=== PATIENT | female | born 1970 | race Caucasian/White ===

== ENCOUNTER → 2017-01-03 | Outpatient (CLI) | payer MEDICAID ==
--- NOTE | 2017-01-04 07:52 | MM ---
Reason for exam: follow-up at short interval from prior study. Last mammogram was performed 7 months ago. History: Patient history of other cancer. Took hormonal contraceptives for 12 years beginning at age 17. Physical Findings: Nurse did not find any significant physical abnormalities on exam. MG 3D Diag Mammo W/Cad LT CC and MLO view(s) were taken of the left breast. Prior study comparison: May 25, 2016, left breast MG work up mamm w CAD LT. May 09, 2016, bilateral MG screening mammo w CAD. The breast tissue is heterogeneously dense. This may lower the sensitivity of mammography. No significant new findings when compared with previous films. These results were verbally communicated with the patient and result sheet given to the patient on 01/03/17. ASSESSMENT: Benign, BI-RAD 2 RECOMMENDATION: Return to routine screening mammogram schedule for both breasts.
== END | disposition home or self-care (01) ==
LOC: RADMAMWWP 15:29
PROVIDERS: ATTEND Obstetrics & Gynecology
DX: R92.8 Other abnormal and inconclusive findings on diagnostic imaging of breast (principal)
CPT/HCPCS: G0206; G0279

== ENCOUNTER → 2017-02-28 | Outpatient (CLI) | payer MEDICAID ==
[2017-02-28 16:54] LABS: HSV I IgG Interp NEGATIVE (NEGATIVE); HSV II IgG Interp NEGATIVE (NEGATIVE)
[2017-02-28 23:06] LABS: Treponemal Ab Non-Reactive (Non-Reactive)
== END | disposition home or self-care (01) ==
LOC: LABWHC1 09:27
PROVIDERS: ATTEND Obstetrics & Gynecology
DX: Z11.3 Encounter for screening for infections with a predominantly sexual mode of transmission (principal)
CPT/HCPCS: 36415; 86694; 86695; 86696; 86780; 87390

== ENCOUNTER → 2017-10-03 | Outpatient (CLI) | payer MEDICAID | END | disposition home or self-care (01) | LOC: LABMAIN 09:46 | PROVIDERS: ATTEND Physician Assistant | DX: R05 Cough (principal); R09.81 Nasal congestion | CPT/HCPCS: 87502 ==

== ENCOUNTER → 2018-01-10 | Outpatient (CLI) | payer MEDICAID ==
--- NOTE | 2018-01-13 09:58 | MM ---
Reason for exam: screening (asymptomatic). Last mammogram was performed 1 year ago. History: Patient history of other cancer. Took hormonal contraceptives for 12 years beginning at age 17. Physical Findings: A clinical breast exam by your physician is recommended on an annual basis and results should be correlated with mammographic findings. MG 3D Screening Mammo W/Cad Bilateral CC and MLO view(s) were taken. Prior study comparison: January 03, 2017, left breast MG 3d diag mammo w/cad LT. May 25, 2016, left breast MG work up mamm w CAD LT. The breast tissue is heterogeneously dense. This may lower the sensitivity of mammography. Finding: There is a typically benign 2.6 mm high density, oval mass in the 11 o'clock position of the left breast consistent with enlarging cyst. No significant changes in finding since January 03, 2017 and May 25, 2016. ASSESSMENT: Benign, BI-RAD 2 RECOMMENDATION: Routine screening mammogram of both breasts in 1 year.
== END | disposition home or self-care (01) ==
LOC: RADMAMWWP 15:42
PROVIDERS: ATTEND Obstetrics & Gynecology
DX: Z12.31 Encounter for screening mammogram for malignant neoplasm of breast (principal)
CPT/HCPCS: 77063

== ENCOUNTER → 2018-01-15 | Outpatient (CLI) | payer MEDICAID ==
[2018-01-15 08:15] LABS: Cholesterol 250 mg/dL (<200); HDL Cholesterol 102 mg/dL (40-60); LDL Cholesterol,Calculated 137 mg/dL (0-99); Triglycerides 53 mg/dL (<150)
== END | disposition home or self-care (01) ==
LOC: LABWHC1 07:30
PROVIDERS: ATTEND Obstetrics & Gynecology
DX: Z13.220 Encounter for screening for lipoid disorders (principal)
CPT/HCPCS: 36415; 80061

== ENCOUNTER → 2018-05-07 | Outpatient (CLI) | payer MEDICAID ==
--- NOTE | 2018-05-07 21:52 | MR ---
EXAMINATION TYPE: MR brain wo/w con DATE OF EXAM: 05/07/2018 COMPARISON: CT brain 01/31/2011 HISTORY: Headaches, Neck Pain, Confusion, Gadavist 7.5 TECHNIQUE: Multiplanar, multisequence images of the brain and brainstem is performed without and with IV contras t, utilizing 7.5 mL intravenous Gadavist . FINDINGS: Diffusion weighted images demonstrate no evidence of a recent infarct or other diffusion ab normality. There is no extra-axial fluid collection or significant white matter signal abnormality. The ventricular system and cisternal spaces are normal in size and appearance. The brain volume is age appropriate. Midline structures demonstrate normal morphology. The craniocervical junction appears within normal limits. Prominent posterior finding is similar to the CT scan of the head CSF fluid collection may represent a prominent cisterna magna or an arachnoid cyst. Findings stable compared to the CT scan 2010. Incidental note is made of a tiny venous angioma within the left parietal lobe. Changes of chronic si nusitis noted. White matter: There are approximately 3 areas of abnormal signal the white matter. All are seen withi n the left parietal lobe largest measuring 8 mm. There a small area of abnormal signal in the anterio r genuine corpus callosum. There are no lesions perpendicular to ventricular system. No enhancing lesions. IMPRESSION: 1. There is a prominent posterior fossa CSF collection which may represent a prominent cisterna magna . Arachnoid cyst within the differential diagnosis and not excluded. 2. Minimal nonspecific white matter changes can be on the basis of an area of remote ischemia. Appear s in the location of the suspected incidental venous angioma. Demyelinating disease not entirely excl uded given there is an area of abnormal signal within the anterior corpus callosum. Correlate clinica lly.
== END | disposition home or self-care (01) ==
LOC: RADMRIMAIN 20:36
PROVIDERS: ATTEND Psychiatry & Neurology Neurology
DX: R90.89 Other abnormal findings on diagnostic imaging of central nervous system (principal); R93.0 Abnormal findings on diagnostic imaging of skull and head, not elsewhere classified; H53.9 Unspecified visual disturbance; R26.89 Other abnormalities of gait and mobility; Z86.69 Personal history of other diseases of the nervous system and sense organs
CPT/HCPCS: 70553; A9581

== ENCOUNTER → 2018-05-26 | Outpatient (CLI) | payer MEDICAID ==
--- NOTE | 2018-05-26 17:11 | US ---
EXAMINATION TYPE: US carotid duplex BILAT DATE OF EXAM: 05/26/2018 COMPARISON: Brain MR 05/07/2018 CLINICAL HISTORY: R90.82 M54.2. Abnormal MRI. High cholesterol- no meds. No HTN. No hx of tia or s trokes. EXAM MEASUREMENTS: RIGHT: Peak Systolic Velocity (PSV) cm/sec ----- Right CCA: 76.5 ----- Right ICA: 73.8 ----- Right ECA: 88.6 ICA/CCA ratio: 1.0 RIGHT: End Diastole cm/sec ----- Right CCA: 30.3 ----- Right ICA: 33.7 ----- Right ECA: 24.8 LEFT: Peak Systolic Velocity (PSV) cm/sec ----- Left CCA: 81.7 ----- Left ICA: 72.1 ----- Left ECA: 96.3 ICA/CCA ratio: 0.9 LEFT: End Diastole cm/sec ----- Left CCA: 30.2 ----- Left ICA: 31.1 ----- Left ECA: 23.7 VERTEBRALS (direction of flow): Right Vertebral: Antegrade Left Vertebral: Antegrade Rhythm: Normal No wall thickening, plaque, elevated velocities or significant stenosis seen. Grayscale, color Doppler, spectral Doppler imaging performed of the carotid arteries. Waveform analys is does not show significant stenosis of the proximal internal carotid arteries by Doppler criteria. IMPRESSION: No hemodynamic significant stenosis of the proximal internal carotid arteries by Doppler criteria, an indirect measurement of carotid stenosis
== END ==
LOC: RADUSMAIN 15:54
PROVIDERS: ATTEND Psychiatry & Neurology Neurology
DX: M54.2 Cervicalgia (principal); R90.82 White matter disease, unspecified
CPT/HCPCS: 93880

== ENCOUNTER 2018-10-03 07:06 | Emergency (ER) | payer MEDICAID ==
[2018-10-03 07:11] VITALS: RESP 18
[2018-10-03] MEDS ORDERED: SODIUM CHLORIDE 0.9% 1,000 ML IV STA (07:48)
[2018-10-03] MEDS ORDERED: METOCLOPRAMIDE 5 MG/ML 2 ML VIAL IVP STA (07:49)
[2018-10-03] MEDS ORDERED: MECLIZINE 12.5 MG TAB PO STA (07:49)
--- NOTE | 2018-10-03 07:51 | ED ---
General Adult HPI - General Chief complaint: Dizziness Stated complaint: Dizziness Time Seen by Provider: 10/03/18 07:34 Source: patient, RN notes reviewed Mode of arrival: ambulatory Limitations: no limitations - History of Present Illness Initial comments: Patient is a pleasant 47-year-old female presenting to the emergency department with dizziness. Onset was around 3 AM when she rolled over in bed. Symptoms were also noted this morning. Patient had a land the floor twice because her symptoms were bad. Patient complains of a spinning type sensation. Patient denies any confusion. No visual change. No weakness or confusion or speech problems. No history of similar symptoms previously. Symptoms are positional. - Related Data Home Medications Medication Instructions Recorded Confirmed Escitalopram [Lexapro] 10 mg PO DAILY 10/03/18 10/03/18 L.acidoph,Paracasei, B.lactis 1 cap PO DAILY 10/03/18 10/03/18 [Probiotic] Previous Rx's Medication Instructions Recorded Meclizine [Antivert] 25 mg PO TID PRN #12 tab 10/03/18 Allergies Allergy/AdvReac Type Severity Reaction Status Date / Time No Known Allergies Allergy Verified 10/03/18 07:50 Review of Systems ROS Statement: Those systems with pertinent positive or pertinent negative responses have been documented in the HPI. ROS Other: All systems not noted in ROS Statement are negative. Constitutional: Denies: fever Eyes: Denies: eye pain ENT: Denies: ear pain Respiratory: Denies: cough, dyspnea Cardiovascular: Denies: chest pain Endocrine: Denies: fatigue Gastrointestinal: Denies: abdominal pain Genitourinary: Denies: dysuria Musculoskeletal: Denies: back pain Skin: Denies: rash Neurological: Reports: vertigo. Denies: headache, weakness Past Medical History Additional Past Medical History / Comment(s): IBS History of Any Multi-Drug Resistant Organisms: None Reported Additional Past Surgical History / Comment(s): D&C Past Psychological History: Anxiety Smoking Status: Never smoker Past Alcohol Use History: Occasional Past Drug Use History: None Reported General Exam Limitations: no limitations General appearance: alert, in no apparent distress Head exam: Present: atraumatic Eye exam: Present: normal appearance, PERRL, EOMI ENT exam: Present: normal oropharynx Neck exam: Present: normal inspection Respiratory exam: Present: normal lung sounds bilaterally Cardiovascular Exam: Present: regular rate, normal rhythm GI/Abdominal exam: Present: soft. Absent: tenderness Extremities exam: Present: normal inspection Neurological exam: Present: alert, oriented X3, CN II-XII intact. Absent: motor sensory deficit Expanded Neurological exam: Present: protecting the airway Speech: Present: fluid speech Cranial nerves: EOM's Intact: Normal, Facial Sensation: Normal Cerebellar function: Finger to Nose: Normal Sensory exam: Upper Extremity Light Touch: Normal, Lower Extremity Light Touch: Normal Motor strength exam: RUE: 5, LUE: 5, RLE: 5, LLE: 5 Eye Response: (4) open spontaneously Motor Response: (6) obeys commands Verbal Response: (5) oriented Psychiatric exam: Present: normal affect, normal mood Skin exam: Present: normal color Course Vital Signs 10/03/18 07:07 Temperature 97.7 F Pulse Rate 92 Respiratory 18 Rate Blood Pressure 139/93 O2 Sat by Pulse 100 Oximetry EKG Findings - EKG Comments: EKG Findings:: Normal sinus rhythm 67. NM 124. QRS 80. QT 428. QTC 42. Normal axis. Normal QRS. No acute ST change. Medical Decision Making - Medical Decision Making Patient reevaluated and resting comfortably in bed. Patient symptom-free at this time. Patient did get up to use the restroom earlier and felt close to normal, only minimal dizziness. Patient is comfortable with discharge home. Patient updated on results and need for follow-up. - Lab Data Result diagrams: 10/03/18 07:40 10/03/18 07:40 Lab Results 10/03/18 10/03/18 10/03/18 Range/Units 07:40 07:40 07:40 WBC 5.7 (3.8-10.6) k/uL RBC 4.10 (3.80-5.40) m/uL Hgb 13.2 (11.4-16.0) gm/dL Hct 40.1 (34.0-46.0) % MCV 97.8 (80.0-100.0) fL MCH 32.1 (25.0-35.0) pg MCHC 32.8 (31.0-37.0) g/dL RDW 11.8 (11.5-15.5) % Plt Count 251 (150-450) k/uL Neutrophils % 64 % Lymphocytes % 26 % Monocytes % 6 % Eosinophils % 2 % Basophils % 1 % Neutrophils # 3.6 (1.3-7.7) k/uL Lymphocytes # 1.5 (1.0-4.8) k/uL Monocytes # 0.3 (0-1.0) k/uL Eosinophils # 0.1 (0-0.7) k/uL Basophils # 0.1 (0-0.2) k/uL PT 10.3 (9.0-12.0) sec INR 1.0 (<1.2) APTT 21.8 L (22.0-30.0) sec Sodium 136 L (137-145) mmol/L Potassium 5.0 (3.5-5.1) mmol/L Chloride 106 (98-107) mmol/L Carbon Dioxide 25 (22-30) mmol/L Anion Gap 5 mmol/L BUN 11 (7-17) mg/dL Creatinine 0.80 (0.52-1.04) mg/dL Est GFR (CKD-EPI)AfAm >90 (>60 ml/min/1.73 sqM) Est GFR (CKD-EPI)NonAf 88 (>60 ml/min/1.73 sqM) Glucose 98 (74-99) mg/dL Calcium 9.5 (8.4-10.2) mg/dL Total Bilirubin 0.6 (0.2-1.3) mg/dL AST 30 (14-36) U/L ALT 27 (9-52) U/L Alkaline Phosphatase 35 L (38-126) U/L Total Protein 6.7 (6.3-8.2) g/dL Albumin 4.3 (3.5-5.0) g/dL - Radiology Data Radiology results: report reviewed (Computed tomography scan of the brain shows no acute intercranial abnormality. Stable posterior fossa arachnoid cyst or ligamentous cisterna magna.) Disposition Clinical Impression: Vertigo Disposition: HOME SELF-CARE Condition: Stable Instructions (If sedation given, give patient instructions): Dizziness (ED) Additional Instructions: Please follow-up with primary care physician in the next day or 2 for recheck. Return for increased dizziness, off balance, confusion, speech problems, weakness, visual changes, worsening or changing symptoms or other concerns. Prescriptions: Meclizine [Antivert] 25 mg PO TID PRN #12 tab PRN Reason: dizziness Is patient prescribed a controlled substance at d/c from ED?: No Referrals: Steve Timmons DO [Primary Care Provider] - 1-2 days Time of Disposition: 09:05
[2018-10-03 08:16] LABS: Basophils # (A) 0.1 k/uL (0-0.2); Basophils % (A) 1 %; Eosinophils # (A) 0.1 k/uL (0-0.7); Eosinophils % (A) 2 %; HCT 40.1 % (34.0-46.0); HGB 13.2 gm/dL (11.4-16.0); Lymphocytes # (A) 1.5 k/uL (1.0-4.8); Lymphocytes % (A) 26 %; MCH 32.1 pg (25.0-35.0); MCHC 32.8 g/dL (31.0-37.0); MCV 97.8 fL (80.0-100.0); Mean Platelet Volume 7.1; Monocytes # (A) 0.3 k/uL (0-1.0); Monocytes % (A) 6 %; Neutrophils # (A) 3.6 k/uL (1.3-7.7); Neutrophils % (A) 64 %; Platelet Count 251 k/uL (150-450); RDW 11.8 % (11.5-15.5); WBC 5.7 k/uL (3.8-10.6)
[2018-10-03 08:31] LABS: Prothrombin Time 10.3 sec (9.0-12.0)
[2018-10-03 08:35] LABS: ALT 27 U/L (9-52); AST 30 U/L (14-36); Albumin 4.3 g/dL (3.5-5.0); Alkaline Phosphatase 35 U/L (38-126); Anion Gap 5 mmol/L; Blood Urea Nitrogen 11 mg/dL (7-17); Calcium 9.5 mg/dL (8.4-10.2); Carbon Dioxide 25 mmol/L (22-30); Chloride 106 mmol/L (98-107); Glucose 98 mg/dL (74-99); Sodium 136 mmol/L (137-145); Total Bilirubin 0.6 mg/dL (0.2-1.3); Total Protein 6.7 g/dL (6.3-8.2)
--- NOTE | 2018-10-03 08:38 | CT ---
EXAMINATION TYPE: CT brain wo con DATE OF EXAM: 10/03/2018 COMPARISON: CT brain January 09, 2011. MRI brain January 31, 2011. HISTORY: Dizziness and vertigo. CT DLP: 1071.4 mGycm. Automated Exposure Control for Dose Reduction was Utilized. TECHNIQUE: CT scan of the head is performed without contrast. FINDINGS: There is no acute intracranial hemorrhage, mass effect, or midline shift identified. The ventricles and sulci are within normal limits in size. Asymmetry of ventricles is unchanged from farhad or There is persistent prominence of CSF in the posterior fossa posteriorly and superiorly unchanged from prior studies The globes are intact and the visualized sinuses are clear. IMPRESSION: No acute intracranial hemorrhage or midline shift is seen. Stable posterior fossa arachn oid cyst or ligamentous cisterna magna. No significant change from 2011 studies.
[2018-10-03 08:57] LABS: Partial Thromboplastin Time 21.8 sec (22.0-30.0)
[2018-10-03 09:14] VITALS: BP 116/76; PULSE 71; TEMP 98.3
== END 2018-10-03 09:17 | disposition home or self-care (01) ==
LOC: EC 07:06
DX: R42 Dizziness and giddiness (principal); F41.9 Anxiety disorder, unspecified; Z79.899 Other long term (current) drug therapy
CPT/HCPCS: 36415; 93005; 80053; 85025; 85610; 85730; 70450; 99284; 96374; 96361; J2765

== ENCOUNTER → 2019-03-03 | Outpatient (CLI) | payer MEDICAID ==
[2019-03-03 12:51] LABS: HCT 37.2 % (34.0-46.0); HGB 12.3 gm/dL (11.4-16.0); MCH 32.3 pg (25.0-35.0); MCHC 32.9 g/dL (31.0-37.0); MCV 98.1 fL (80.0-100.0); Mean Platelet Volume 8.1; Platelet Count 263 k/uL (150-450); RDW 12.3 % (11.5-15.5); WBC 6.7 k/uL (3.8-10.6)
[2019-03-03 13:13] LABS: Partial Thromboplastin Time 24.7 sec (22.0-30.0); Prothrombin Time 10.5 sec (9.0-12.0)
[2019-03-03 19:07] LABS: Parathyroid Hormone Intact 70.8 pg/mL (14.0-72.0)
[2019-03-03 19:11] LABS: Iron Saturation 39.44 (12.00-45.00)
[2019-03-03 19:21] LABS: Vitamin D 25 Hydroxy 23.9 ng/mL (30.0-100.0)
[2019-03-03 19:24] LABS: Albumin 4.4 g/dL (3.80-4.90); Albumin/Globulin Ratio 2.59 (1.60-3.17); Anion Gap 8.1 mmol/L (4.00-12.00); Calcium 9.3 mg/dL (8.7-10.3); Carbon Dioxide 25.9 mmol/L (21.6-31.8); Globulin 1.7 g/dL (1.6-3.3); LDL Cholesterol,Calculated 122.2 mg/dL (0.0-131.0); Magnesium 1.9 mg/dL (1.5-2.4); Phosphorus 3.4 mg/dL (2.4-5.1); Potassium 3.9 mmol/L (3.5-5.5); Total Bilirubin 0.6 mg/dL (0.3-1.2); Total Protein 6.1 g/dL (6.2-8.2); VLDL Calculation 17.8 mg/dL (5.00-40.00)
[2019-03-03 20:49] LABS: Hemoglobin A1C 5.1 % (4.0-6.0)
[2019-03-04 12:28] LABS: Zinc, Serum 67 ug/dL (60-130)
[2019-03-04 12:48] LABS: Vitamin A 46 ug/dL (38-106)
== END | disposition home or self-care (01) ==
LOC: LABWHC1 09:35
PROVIDERS: ATTEND Surgery Plastic and Reconstructive Surgery
DX: E66.01 Morbid (severe) obesity due to excess calories (principal); E89.1 Postprocedural hypoinsulinemia; D50.9 Iron deficiency anemia, unspecified; K90.9 Intestinal malabsorption, unspecified; E55.9 Vitamin D deficiency, unspecified; K76.9 Liver disease, unspecified; T56.894A Toxic effect of other metals, undetermined, initial encounter
CPT/HCPCS: 36415; 80053; 80061; 82306; 82525; 82607; 82728; 82746; 83036; 83540; 83550; 83735; 83970; 84100; 84134; 84255; 84425; 84443; 84590; 84630; 85027; 85610; 85730

== ENCOUNTER → 2019-04-20 | Outpatient (CLI) | payer MEDICAID ==
[2019-04-20 17:53] LABS: Gliadin AB IgA, Deaminated NEGATIVE (NEGATIVE); Gliadin AB IgA, Unit <0.2 U/mL; Gliadin AB IgG, Deaminated NEGATIVE (NEGATIVE)
== END | disposition home or self-care (01) ==
LOC: LABWHC1 10:56
PROVIDERS: ATTEND Allergy & Immunology
DX: L50.8 Other urticaria (principal); R10.10 Upper abdominal pain, unspecified; R06.02 Shortness of breath; R42 Dizziness and giddiness; R00.2 Palpitations; R23.2 Flushing
CPT/HCPCS: 36415; 82785; 83516; 83520; 86140

== ENCOUNTER → 2019-04-27 | Outpatient (CLI) | payer MEDICAID ==
[2019-04-29 09:04] LABS: Cortisol, Urine Free by LC-MS 11.4 ug/L; Free Cortisol 24 Hour,Urine 14.8 ug/day (<45.0)
== END | disposition home or self-care (01) ==
LOC: LABWHC1 07:02
PROVIDERS: ATTEND Allergy & Immunology
DX: L50.8 Other urticaria (principal); R10.10 Upper abdominal pain, unspecified; R42 Dizziness and giddiness; R00.2 Palpitations; R23.2 Flushing; R06.02 Shortness of breath
CPT/HCPCS: 82384; 82530; 83497; 83835

== ENCOUNTER → 2019-04-30 | Outpatient (CLI) | payer MEDICAID ==
--- NOTE | 2019-04-30 10:52 | FL ---
EXAMINATION TYPE: FL UGI air w small bowel DATE OF EXAM: 04/30/2019 COMPARISON: NONE HISTORY: History of irritable bowel syndrome with diarrhea and nausea after eating per patient. Upper abdominal pain per order. TECHNIQUE: A double contrast UGI study is performed with small bowel follow through. Total of 59 sec onds of fluoroscopic time was utilized during procedure. 45 spot images are saved. FINDINGS: [employer] image of the abdomen shows no gross abnormality. Patient then drank contrast. The esophagus shows satisfactory motility and emptying into the stomach. No evidence of fixed hiatal hernia or stricture noted. The stomach shows satisfactory distensibility, peristalsis, and mucosal folds. No evidence of any ma ss or focal ulcer disease. Few episodes of gastroesophageal reflux into the distal one third of esoph karina noted during real-time performance of study. The duodenal bulb and sweep are unremarkable. The small bowel study shows normal transit to the colon in less than 30 minutes. There is normal muc osal fold pattern throughout the small bowel. There is no evidence of any stricture or filling defec t noted. The terminal ileum is felt within normal limits. IMPRESSION: Episodic gastroesophageal reflux otherwise unremarkable study.
== END | disposition home or self-care (01) ==
LOC: RADFLMAIN 07:57
PROVIDERS: ATTEND Allergy & Immunology
DX: K21.9 Gastro-esophageal reflux disease without esophagitis (principal); R00.2 Palpitations; R23.2 Flushing; R42 Dizziness and giddiness
CPT/HCPCS: 74249

== ENCOUNTER → 2020-05-24 | Outpatient (CLI) | payer MEDICAID ==
[2020-05-24 07:33] LABS: HCT 36.9 % (34.0-46.0); MCH 32.3 pg (25.0-35.0); MCHC 32.4 g/dL (31.0-37.0); MCV 99.4 fL (80.0-100.0); Mean Platelet Volume 8.4; Platelet Count 191 k/uL (150-450); RBC 3.71 m/uL (3.80-5.40); RDW 11.9 % (11.5-15.5); WBC 6.3 k/uL (3.8-10.6)
[2020-05-24 11:14] LABS: Ferritin 24.5 ng/mL (10.0-291.0)
[2020-05-24 11:40] LABS: % Iron Saturation 30.86 (12.00-45.00); African American GFR (CKD) 76.1 (60.0-200.0); Albumin 4.1 g/dL (3.80-4.90); Albumin/Globulin Ratio 2.41 (1.60-3.17); Anion Gap 6.3 mmol/L (4.00-12.00); Carbon Dioxide 29.7 mmol/L (21.6-31.8); Chol/HDL Ratio 2.15; Folate, Serum 13.5 ng/mL; Globulin 1.7 g/dL (1.6-3.3); LDL Cholesterol,Calculated 94.8 mg/dL (0.0-131.0); Magnesium 1.8 mg/dL (1.5-2.4); Non-African American GFR(CKD) 65.6 (60.0-200.0); Phosphorus 3.4 mg/dL (2.4-5.1); Potassium 4.3 mmol/L (3.5-5.5); Total Bilirubin 0.5 mg/dL (0.3-1.2); Total Protein 5.8 g/dL (6.2-8.2); VLDL Calculation 22.2 mg/dL (5.00-40.00)
[2020-05-24 12:50] LABS: Hemoglobin A1C 4.9 % (4.0-6.0)
[2020-05-24 17:23] LABS: Partial Thromboplastin Time 27.4 sec (24.7-29.9); Prothrombin Time 10.7 sec (9.9-11.9)
[2020-05-25 12:47] LABS: Zinc, Serum 66 ug/dL (60-130)
[2020-05-26 07:16] LABS: Vitamin A 42 ug/dL (38-106)
[2020-05-26 07:41] LABS: Vit B1(Thiamine) 74 ug/L (38-122)
== END | disposition home or self-care (01) ==
LOC: LABWHC1 07:08
PROVIDERS: ATTEND Surgery Plastic and Reconstructive Surgery
DX: D50.9 Iron deficiency anemia, unspecified (principal); K90.9 Intestinal malabsorption, unspecified; E55.9 Vitamin D deficiency, unspecified; K76.9 Liver disease, unspecified; T56.894A Toxic effect of other metals, undetermined, initial encounter
CPT/HCPCS: 36415; 80053; 80061; 82306; 82525; 82607; 82728; 82746; 83036; 83540; 83550; 83735; 83970; 84100; 84134; 84255; 84425; 84443; 84590; 84630; 85027; 85610; 85730

== ENCOUNTER → 2020-09-29 | Outpatient (CLI) | payer MEDICAID ==
--- NOTE | 2020-09-30 09:41 | MM ---
Reason for exam: screening (asymptomatic). Last mammogram was performed 2 years and 9 months ago. History: Patient history of other cancer. Took hormonal contraceptives for 12 years beginning at age 17. Physical Findings: A clinical breast exam by your physician is recommended on an annual basis and results should be correlated with mammographic findings. MG 3D Screening Mammo W/Cad Bilateral CC and MLO view(s) were taken. Prior study comparison: January 10, 2018, bilateral MG 3d screening mammo w/cad. January 03, 2017, left breast MG 3d diag mammo w/cad LT. The breast tissue is heterogeneously dense. This may lower the sensitivity of mammography. New nodule 12 o'clock right breast. This finding is changed when compared with previous exams. ASSESSMENT: Incomplete: need additional imaging evaluation, BI-RAD 0 RECOMMENDATION: Special view mammogram and ultrasound of the right breast. [facility] will attempt to contact patient to return for supplemental views and ultrasound.
== END | disposition home or self-care (01) ==
LOC: RADMAMWWP 10:13
PROVIDERS: ATTEND Obstetrics & Gynecology
DX: Z12.31 Encounter for screening mammogram for malignant neoplasm of breast (principal)
CPT/HCPCS: 77063; 77067

== ENCOUNTER → 2020-10-13 | Outpatient (CLI) | payer MEDICAID ==
--- NOTE | 2020-10-14 09:08 | MM ---
Reason for exam: additional evaluation requested from abnormal screening. Last mammogram was performed less than 1 month ago. History: Patient history of other cancer. Took hormonal contraceptives for 12 years beginning at age 17. Physical Findings: Nurse did not find any significant physical abnormalities on exam. MG 3D Work Up W/Cad RT Spot compression CC, spot compression MLO, and ML view(s) were taken of the right breast. Prior study comparison: September 29, 2020, bilateral MG 3d screening mammo w/cad. January 10, 2018, bilateral MG 3d screening mammo w/cad. Finding: There is a 15 mm obscured oval mass located 3 cm from the nipple in the 12 o'clock upper quadrant, middle position of the right breast. These results were verbally communicated with the patient and result sheet given to the patient on 10/13/20. ASSESSMENT: Incomplete: need additional imaging evaluation, BI-RAD 0 RECOMMENDATION: Ultrasound of the right breast.
--- NOTE | 2020-10-14 09:10 | USB ---
Reason for exam: additional evaluation requested from abnormal screening. History: Patient history of other cancer. Took hormonal contraceptives for 12 years beginning at age 17. US Breast Workup Limited RT Right limited breast ultrasound including focal area of concern, retroareolar and axilla demonstrates a 1.7 x 0.9 x 1.5cm oval, cystic lesion at 12 o'clock. Multiple small cysts seen. These results were verbally communicated with the patient and result sheet given to the patient on 10/13/20. ASSESSMENT: Benign, BI-RAD 2 RECOMMENDATION: Return to routine screening mammogram schedule for both breasts.
== END | disposition home or self-care (01) ==
LOC: RADMAMWWP 13:39
PROVIDERS: ATTEND Obstetrics & Gynecology
DX: R92.8 Other abnormal and inconclusive findings on diagnostic imaging of breast (principal)
CPT/HCPCS: 77061; 77065

== ENCOUNTER 2020-10-21 20:42 | Emergency (ER) | payer MEDICAID, OTHER ==
[2020-10-21 20:46] VITALS: BP 116/75; PULSE 73; RESP 16; TEMP 98.1
--- NOTE | 2020-10-21 20:57 | ED ---
General Adult HPI - General Chief complaint: Needlestick/Exposure Stated complaint: [facility]-needlestick Time Seen by Provider: 10/21/20 20:47 Source: patient, RN notes reviewed Mode of arrival: ambulatory Limitations: no limitations - History of Present Illness Initial comments: Patient is a 49-year-old female that presents emergency department status post needlestick in the OR. She noted that the patient was a younger male. She noted that the needle barely penetrated the skin to the floor chills and, in that she was worried about it. She noted the nurses worried taking blood and had all labs ordered. She was in no apparent distress or pain. She denied any chest pain shortness of breath headache nausea vomiting diarrhea constipation fever fatigue chills. - Related Data Home Medications Medication Instructions Recorded Confirmed Escitalopram [Lexapro] 10 mg PO DAILY 10/03/18 10/03/18 L.acidoph,Paracasei, B.lactis 1 cap PO DAILY 10/03/18 10/03/18 [Probiotic] Previous Rx's Medication Instructions Recorded Meclizine [Antivert] 25 mg PO TID PRN #12 tab 10/03/18 Allergies Allergy/AdvReac Type Severity Reaction Status Date / Time No Known Allergies Allergy Verified 10/21/20 20:46 Review of Systems ROS Statement: Those systems with pertinent positive or pertinent negative responses have been documented in the HPI. ROS Other: All systems not noted in ROS Statement are negative. Past Medical History Additional Past Medical History / Comment(s): IBS History of Any Multi-Drug Resistant Organisms: None Reported Additional Past Surgical History / Comment(s): D&C Past Psychological History: Anxiety Smoking Status: Never smoker Past Alcohol Use History: Occasional Past Drug Use History: None Reported General Exam Limitations: no limitations General appearance: alert, in no apparent distress Head exam: Present: atraumatic, normocephalic, normal inspection Eye exam: Present: normal appearance, PERRL, EOMI. Absent: scleral icterus, conjunctival injection, periorbital swelling Neck exam: Present: normal inspection. Absent: tenderness, meningismus, lymphadenopathy Respiratory exam: Present: normal lung sounds bilaterally. Absent: respiratory distress, wheezes, rales, rhonchi, stridor Cardiovascular Exam: Present: regular rate, normal rhythm, normal heart sounds. Absent: systolic murmur, diastolic murmur, rubs, gallop, clicks GI/Abdominal exam: Present: soft, normal bowel sounds. Absent: distended, tenderness, guarding, rebound, rigid Extremities exam: Present: normal inspection, full ROM, normal capillary refill. Absent: tenderness, pedal edema, joint swelling, calf tenderness Neurological exam: Present: alert, oriented X3, CN II-XII intact Psychiatric exam: Present: normal affect, normal mood Skin exam: Present: warm, dry, intact, normal color, other (Small needle puncture to the DIP P of the left ring finger. No blood noted.). Absent: rash Course Vital Signs 10/21/20 20:44 Temperature 98.1 F Pulse Rate 73 Respiratory 16 Rate Blood Pressure 116/75 O2 Sat by Pulse 99 Oximetry Medical Decision Making - Medical Decision Making 49-year-old female status post needle stick injury. Labs collected by nurse. Patient was in no distress or pain. Case discussed with Dr. Lang, was decided the patient to discharge home. Disposition Clinical Impression: Needle stick injury of finger Disposition: HOME SELF-CARE Condition: Stable Instructions (If sedation given, give patient instructions): Needle Stick Injuries (ED) Additional Instructions: Please return to the Emergency Department if symptoms worsen or any other concerns. Follow-up primary care in 1-2 days. Follow-up with lab work for any potential concerns. Follow workplace safety protocols on needlesticks injuries. Is patient prescribed a controlled substance at d/c from ED?: No Referrals: Steve Timmons DO [Primary Care Provider] - 1-2 days Time of Disposition: 21:37
== END 2020-10-21 21:42 | disposition home or self-care (01) ==
LOC: EC 20:42
DX: S69.92XA Unspecified injury of left wrist, hand and finger(s), initial encounter (principal); F41.9 Anxiety disorder, unspecified; Z79.899 Other long term (current) drug therapy; W46.0XXA Contact with hypodermic needle, initial encounter; Y99.0 Civilian activity done for income or pay
CPT/HCPCS: 99282

== ENCOUNTER 2021-03-27 06:50 | Day surgery (SDC) | payer MEDICAID, OTHER ==
[~2021-03-27 06:50] MED LIST: LACTATED RINGERS 1,000 ML IV SCH; LIDOCAINE 1% (10MG/ML) FOR IV START INTRADERMA PRN
[2021-03-27 07:30] VITALS: TEMP 98.6
--- NOTE | 2021-03-27 07:33 | P.GSHP ---
History of Present Illness H&P Date: 03/27/21 CHIEF COMPLAINT: GERD and colon screen HISTORY OF PRESENT ILLNESS: The patient is a 50-year-old female who presents with gastroesophageal reflux disease and need for colon screen. Upper and lower endoscopy were offered for further evaluation and management. PAST MEDICAL HISTORY: Please see list. PAST SURGICAL HISTORY: Please see list. MEDICATIONS: Please see list. ALLERGIES: Please see list. SOCIAL HISTORY: No illicit drug use FAMILY HISTORY: No reports of Crohn disease or ulcerative colitis. REVIEW OF ORGAN SYSTEMS: CONSTITUTIONAL: No reports of fevers or chills. GI: Denies any blood in stools or constipation. PHYSICAL EXAM: VITAL SIGNS: Stable GENERAL: Well-developed pleasant in no acute distress. HEENT: No scleral icterus. Extraocular movements grossly intact. Moist buccal mucosa. NECK: Supple without lymphadenopathy. CHEST: Unlabored respirations. Equal bilateral excursions. CARDIOVASCULAR: Regular rate and rhythm. Distal 2+ pulses. ABDOMEN: Soft, nondistended. MUSCULOSKELETAL: No clubbing, cyanosis, or edema. ASSESSMENT: 1. Gastroesophageal reflux disease 2. Colon screen. PLAN: 1. Recommend proceeding with an upper and lower endoscopy Past Medical History Additional Past Medical History / Comment(s): IBS. BASAL CELL History of Any Multi-Drug Resistant Organisms: None Reported Additional Past Surgical History / Comment(s): D&C. Past Anesthesia/Blood Transfusion Reactions: No Reported Reaction, Motion Sickness Past Psychological History: Anxiety Additional Psychological History / Comment(s): IBS Smoking Status: Never smoker Past Alcohol Use History: Occasional Past Drug Use History: None Reported Medications and Allergies Home Medications Medication Instructions Recorded Confirmed Type Escitalopram [Lexapro] 10 mg PO HS 03/23/21 03/23/21 History Ginkgo Biloba 1 cap PO DAILY 03/23/21 03/23/21 History Magnesium 1 tab PO DAILY 03/23/21 03/23/21 History Vitamin B Complex 1 cap PO DAILY 03/23/21 03/23/21 History Allergies Allergy/AdvReac Type Severity Reaction Status Date / Time No Known Allergies Allergy Verified 03/23/21 09:25 Surgical - Exam Vital Signs Temp Pulse Resp BP Pulse Ox 98.6 F 84 16 134/83 98 03/27/21 07:20 03/27/21 07:20 03/27/21 07:20 03/27/21 07:20 03/27/21 07:20
[2021-03-27] MEDS ORDERED: LIDOCAINE 1% INJ 10MG/ML (20 ML MDV) ONE (07:34)
[2021-03-27] MEDS ORDERED: PROPOFOL 10 MG/ML 20 ML VIAL IV ONE (07:34)
--- NOTE | 2021-03-27 08:05 | P.PCN ---
Date of Procedure: 03/27/21 Description of Procedure: PREOPERATIVE DIAGNOSIS: Gastroesophageal reflux disease Epigastric abdominal pain POSTOPERATIVE DIAGNOSIS: Gastritis Gastroesophageal reflux disease Diaphragmatic hiatal hernia Epigastric abdominal pain OPERATION: Esophagogastroduodenoscopy with biopsies along antrum and duodenum SURGEON: Joaquina Ravi MD ANESTHESIA: MAC. INDICATIONS: The patient is a 50-year-old female who presents with a history of reflux disease. Benefits and risks of the procedure were described. Informed consent was obtained. DESCRIPTION: The patient was brought into the endoscopy suite and laid in the left lateral decubitus position. An Olympus gastroscope was passed along the posterior or opharynx down to the distal esophagus where the squamocolumnar junction was encountered at 35 cm from the incisors. The stomach was entered and no bile reflux was found. Additional findings are listed below. Biopsies with cold forceps were obtained of the antrum. The first through third portion of the duodenum was examined. Biopsies were obtained also along the duodenum. Retroflexion of the scope confirmed Hill grade 1 lower esophageal valve. The squamocolumnar junction demonstrated LA grade A erosive esophagitis. The stomach was desufflated. The patient tolerated the procedure well. FINDINGS: Squamocolumnar junction 35 cm from the incisors. Diaphragmatic hiatus at 37 cm. Hiatal hernia, 2 cm Hill grade 1 lower esophageal valve. LA grade A erosive esophagitis. No active duodenitis. Chronic gastritis RECOMMENDATIONS: Upper endoscopy as needed.
--- NOTE | 2021-03-27 08:10 | P.PCN ---
Date of Procedure: 03/27/21 Description of Procedure: PREOPERATIVE DIAGNOSIS: Colonoscopy screening. POSTOPERATIVE DIAGNOSIS: Colonoscopy screening. Diverticulosis, scattered. Colitis OPERATION: Colonoscopy to the cecum, ileocecal valve and appendiceal orifice. SURGEON: Joaquina Ravi MD. ANESTHESIA: MAC. INDICATIONS: The patient is a 50-year-old female who presents for colonoscopy screening. Benefits and risks were described and informed consent was obtained. DESCRIPTION OF PROCEDURE: The patient had undergone Sutab prep. The patient had been brought into the operating room and laid in the left lateral decubitus position. After adequate intravenous sedation, the rectum was examined with 2% lidocaine jelly. No ext ernal hemorrhoids were encountered. The rectal tone was within normal limits. No lesions were palpated in the rectal vault. An Olympus colonoscope was advanced until the cecum, ileocecal valve and appendiceal orifice were clearly viewed. The prep was excellent. Few small scattered diverticulosis was encountered. No colonic polyps were found. Random cold forceps biopsy obtained for colitis. Retroflexion of the scope demonstrated grade 1 internal hemorrhoids without active bleeding or inflammation. The colon was desufflated. The patient had tolerated the procedure well. Withdrawal time was over 6 minutes. FINDINGS: Aronchick preparation quality scale 1 (1-5) Internal hemorrhoids, grade 1 No external prolapsed hemorrhoids. No arteriovenous malformations. No adenomatous polyps. Random biopsies for colitis. RECOMMENDATIONS: Lower endoscopy in 5 years2025 Plan - Discharge Summary Discharge Rx Participant: No New Discharge Prescriptions: Continue Vitamin B Complex 1 cap PO DAILY Magnesium 1 tab PO DAILY Ginkgo Biloba 1 cap PO DAILY Escitalopram [Lexapro] 10 mg PO HS Discharge Medication List Escitalopram [Lexapro] 10 mg PO HS 03/23/21 [History] Ginkgo Biloba 1 cap PO DAILY 03/23/21 [History] Magnesium 1 tab PO DAILY 03/23/21 [History] Vitamin B Complex 1 cap PO DAILY 03/23/21 [History] Follow up Appointment(s)/Referral(s): Joaquina Ravi MD [STAFF PHYSICIAN] - 03/30/21 Patient Instructions/Handouts: Microscopic Colitis (DC) Activity/Diet/Wound Care/Special Instructions: Repeat colonoscopy in 5 years, 2025 Discharge Disposition: HOME SELF-CARE
[2021-03-27 08:36] VITALS: BP 125/75; PULSE 80; RESP 20
== END 2021-03-27 08:45 | disposition home or self-care (01) ==
LOC: ORWHC2ENDO 06:50
PROVIDERS: ATTEND Surgery Plastic and Reconstructive Surgery
DX: Z12.11 Encounter for screening for malignant neoplasm of colon (principal); K29.50 Unspecified chronic gastritis without bleeding; K44.9 Diaphragmatic hernia without obstruction or gangrene; K58.9 Irritable bowel syndrome, unspecified; F41.9 Anxiety disorder, unspecified
CPT/HCPCS: 45380; 43239; 81025; J2001; J2704; 88305

== ENCOUNTER → 2021-05-02 | Outpatient (CLI) | payer MEDICAID ==
--- NOTE | 2021-05-02 09:06 | US ---
EXAMINATION TYPE: US gallbladder DATE OF EXAM: 05/02/2021 COMPARISON: NONE CLINICAL HISTORY: K81.1 CHRONIC CHOLECYSTITIS. Patient stated has nausea and diarrhea x months. EXAM MEASUREMENTS: Liver Length: 16.1 cm. Normal less than 15.5 cm. Gallbladder Wall: 0.1 cm CBD: 0.4 cm Right Kidney: 9.2 x 5.7 x 3.5 cm Pancreas: wnl Liver: Liver is slightly enlarged. Gallbladder: nonmobile focus noted in neck of gallbladder best seen on LLD position; neck focus size = 0.4 x 0.5 x 0.3cm and is isoechoic to gallbladder wall. Evidence for sonographic Schroeder's sign: no CBD: wnl Right Kidney: No hydronephrosis or masses seen IMPRESSION: 1. There may be a small gallstone at the neck of the gallbladder which is nonmobile. Polyp could be c onsidered. 2. Minimal hepatomegaly
== END | disposition home or self-care (01) ==
LOC: RADUSWWP 06:57
PROVIDERS: ATTEND Surgery Plastic and Reconstructive Surgery
DX: R16.0 Hepatomegaly, not elsewhere classified (principal)
CPT/HCPCS: 76705

== ENCOUNTER → 2021-05-25 | Outpatient (CLI) | payer MEDICAID ==
[2021-05-25 16:11] LABS: HCT 36.4 % (34.0-46.0); HGB 12.2 gm/dL (11.4-16.0); MCH 33.6 pg (25.0-35.0); MCHC 33.5 g/dL (31.0-37.0); MCV 100.2 fL (80.0-100.0); Platelet Count 264 k/uL (150-450); RBC 3.63 m/uL (3.80-5.40); RDW 11.9 % (11.5-15.5); WBC 8.7 k/uL (3.8-10.6)
== END | disposition home or self-care (01) ==
LOC: LABPAT 12:46
PROVIDERS: ATTEND Surgery Plastic and Reconstructive Surgery
DX: Z01.812 Encounter for preprocedural laboratory examination (principal); K80.00 Calculus of gallbladder with acute cholecystitis without obstruction
CPT/HCPCS: 85027

== ENCOUNTER 2021-05-26 06:11 | Day surgery (SDC) | payer MEDICAID ==
[2021-05-24 15:54] VITALS: BMI 27.3
--- NOTE | 2021-05-26 06:00 | P.GSHP ---
History of Present Illness H&P Date: 05/26/21 CHIEF COMPLAINT: Cholecystitis HISTORY OF PRESENT ILLNESS: The patient is a 50-year-old female who presents with history of epigastric including right upper quadrant abdominal pain. She underwent diagnostic studies for her gallbladder. Separately her clinical picture was consistent with cholecystitis. Now she presents for surgical intervention. PAST MEDICAL HISTORY: Please see list PAST SURGICAL HISTORY: Please see list MEDICATIONS: Please see list ALLERGIES: Please see list SOCIAL HISTORY: Please see list FAMILY HISTORY: Please see list REVIEW OF ORGAN SYSTEMS: CONSTITUTIONAL: No reports of fevers or chills. HEENT: Denies any troubles with the vision or hearing. ENDOCRINE: No reports of hypothyroidism. No diabetes. RESPIRATORY: No recent pneumonias. CARDIOVASCULAR: Denies chest pain or palpitations GI: No blood in stools or constipation. MUSCULOSKELETAL: Has occasional joint pain including back pain. NEURO: No seizure disorders or headaches. No recent stroke. PSYCH: Has depression. No suicidal ideation. GENITOURINARY: No active blood in urine. No urinary hesitancy. HEMATOLOGIC: No personal or family history of DVTs or pulmonary emboli. SKIN: No skin cancer. PHYSICAL EXAM: VITAL SIGNS: Afebrile vital signs stable GENERAL: Well-developed pleasant in no acute distress. HEENT: No scleral icterus. Extraocular movements grossly intact. Moist buccal mucosa. NECK: Supple without lymphadenopathy. CHEST: Unlabored respirations. Equal bilateral excursions. CARDIOVASCULAR: Regular rate regular rhythm rhythm. Distal 2+ pulses. ABDOMEN: Soft, nondistended. MUSCULOSKELETAL: No clubbing, cyanosis, or edema. NEURO: Cranial nerves II to XII within normal limits. No focal or lateralizing signs. PSYCH: Alert and oriented to person, place and time. SKIN: Well-perfused good skin turgor. ASSESSMENT: 1. Chronic cholecystitis 2. Symptomatic gallstones. PLAN: 1. Will need a robotic cholecystectomy possible open. Benefits and risks were described. 2. Heparin for DVT prophylaxis 5000 units. 3. Antibiotic prophylaxis. Past Medical History Additional Past Medical History / Comment(s): Nausea and abdominal pain, hx IBS, BASAL CELL CA History of Any Multi-Drug Resistant Organisms: None Reported Additional Past Surgical History / Comment(s): D&C x 2 Past Anesthesia/Blood Transfusion Reactions: No Reported Reaction, Motion Sickness Smoking Status: Never smoker - Past Family History Mother Family Medical History: No Reported History Father Family Medical History: Cancer Additional Family Medical History / Comment(s): prostate,bladder Medications and Allergies Home Medications Medication Instructions Recorded Confirmed Type Escitalopram [Lexapro] 10 mg PO HS 03/23/21 05/24/21 History Vitamin B Complex 1 cap PO DAILY 03/23/21 05/24/21 History Allergies Allergy/AdvReac Type Severity Reaction Status Date / Time No Known Allergies Allergy Verified 05/24/21 15:43
[~2021-05-26 06:11] MED LIST changes: +ACETAMINOPHEN TAB 500 MG TAB PO PRN; +DEXAMETHASONE SOD PHOSPHATE 4 MG/ML 1 ML VIAL IV ONE; +GABAPENTIN 300 MG CAP PO PRN; +HEPARIN SODIUM,PORCINE/PF 5,000 UNIT/0.5 ML SYRINGE SQ PRN; +INDOCYANINE GREEN 25 MG VIAL IV PRN; -LIDOCAINE 1% (10MG/ML) FOR IV START INTRADERMA PRN; +MELOXICAM 7.5 MG TAB PO PRN; +MIDAZOLAM 2 MG/2 ML VIAL IV PRN; +ONDANSETRON 4 MG/2 ML VIAL IVP ONE; +SCOPOLAMINE 1.5MG/72HR PATCH TRANSDERM ONE; +SCOPOLAMINE 1.5MG/72HR PATCH TRANSDERM PRN
[2021-05-26] MEDS ORDERED: HYDROmorphone 0.5 MG/0.5 ML SYRINGE IVP PRN (07:00)
[2021-05-26] MEDS ORDERED: KETAMINE 10 MG/ML 20 ML VIAL ONE (07:27)
[2021-05-26] MEDS ORDERED: fentaNYL (PF) 50 MCG/ML 2 ML AMP ONE (07:27)
[2021-05-26] MEDS ORDERED: PROPOFOL 10 MG/ML 20 ML VIAL IV ONE (07:27)
[2021-05-26] MEDS ORDERED: INDOCYANINE GREEN 25 MG VIAL IV ONE (07:27)
[2021-05-26] MEDS ORDERED: ROCURONIUM 10 MG/ML (5 ML VIAL) IV ONE (07:27)
[2021-05-26] MEDS ORDERED: MIDAZOLAM 2 MG/2 ML VIAL ONE (07:27)
[2021-05-26] MEDS ORDERED: ePHEDrine SULFATE/0.9% NACL/PF 50 MG/5 ML SYRINGE IV ONE (07:27)
[2021-05-26] MEDS ORDERED: NEOSTIGMINE 1 MG/ML 10 ML VIAL ONE (07:27)
[2021-05-26] MEDS ORDERED: LIDOCAINE 1% INJ 10MG/ML (20 ML MDV) ONE (07:27)
[2021-05-26] MEDS ORDERED: GLYCOPYRROLATE 0.2 MG/ML 2 ML VIAL ONE (07:27)
[2021-05-26 07:54] LABS: ALT 7 U/L (4-34); AST 14 U/L (14-36); African American GFR (CKD) >90 (>60 ml/min/1.73 sqM); Albumin 2.3 g/dL (3.5-5.0); Alkaline Phosphatase 24 U/L (38-126); Anion Gap 9 mmol/L; Blood Urea Nitrogen 8 mg/dL (7-17); Calcium 8.1 mg/dL (8.4-10.2); Carbon Dioxide 18 mmol/L (22-30); Chloride 105 mmol/L (98-107); Glucose 75 mg/dL (74-99); Non-African American GFR(CKD) >90 (>60 ml/min/1.73 sqM); Potassium 4.2 mmol/L (3.5-5.1); Sodium 132 mmol/L (137-145); Total Bilirubin 0.2 mg/dL (0.2-1.3); Total Protein 4.1 g/dL (6.3-8.2)
[2021-05-26] MEDS ORDERED: LIDOCAINE 1%-EPI 1:100,000 20 ML VIAL SQ ONE (08:16)
[2021-05-26] MEDS ORDERED: LACTATED RINGERS 1,000 ML IV ONE (08:46)
[2021-05-26 09:10] VITALS: TEMP 96.9
--- NOTE | 2021-05-26 09:23 | P.HPADDEND ---
H&P Addendum H&P Addendum Date: 05/26/21 Patient reports new skin lesions along the chest wall worsening condition. Patient requests for excision of right chest wall. Patient gave consent for excision of right chest wall
[2021-05-26 10:44] VITALS: BP 115/75; PULSE 75; RESP 18
--- NOTE | 2021-05-27 11:04 | P.OP ---
Date of Procedure: 05/26/21 Description of Procedure: SURGEON: KIKE OROZCO MD PREOPERATIVE DIAGNOSES: 1. Symptomatic gallstone 2. Chronic cholecystitis 3. Depressive disorder 4. Right chest wall skin lesion 5. Right nipple skin lesion POSTOPERATIVE DIAGNOSES: 1. Symptomatic gallstone 2. Chronic cholecystitis 3. Depressive disorder 4. Peritoneal adhesions, pericholecystic 5. Right chest wall skin lesion 6. Right nipple skin lesion OPERATION: 1. Robotic-assisted da Dann Xi laparoscopic lysis of adhesions 2. Robotic-assisted da Dann Xi laparoscopic cholecystectomy, multiport with FIREFLY 3. Excision of right chest skin wall neoplasm, 3 x 1 cm 4. Excision of right nipple lesion ESTIMATED BLOOD LOSS: 5 mL. SPECIMENS REMOVED: 1. Gallbladder. 2. Right chest wall skin lesion COMPLICATIONS: None. OPERATIVE FINDINGS: 1. Moderate scarring over gallbladder with peritoneal adhesions, pericholecystic with features of chronic cholecystitis 2. Pigmented neoplasm along right chest wall excised to subcutaneous tissue. 3. Right nipple lesion, 2 mm excised. INDICATIONS: The patient is a 50-year-old female who presents with symptomatic gallstones. Additionally, patient reports symptomatic right chest wall lesion including right nipple lesion which she requested resection. Robotic assisted laparoscopic approach was described. Benefits and risks of the procedure including but not limited to bleeding, infection, injury to the biliary tree was described. Informed consent was obtained. DESCRIPTION OF PROCEDURE: Patient was brought to the operating room, placed in supine position. After general induction, the abdomen had been prepped and draped in standard sterile fashion. The robotic da Dann XI system was primed. After a timeout protocol was performed, the patient had been prepped and draped in standard sterile fashion. The patient was injected with indocyanine green. A 5 mm 0 degrees laparoscopic trocar entry was performed along the left upper quadrant. The abdomen insufflated to 15 mmHg pressure which was tolerated well. Diagnostic laparoscopy demonstrated no injury to bowel viscera or mesentery. The liver surface was unremarkable. Next, two 8 mm robotic ports were placed along the right upper abdomen. The camera 8-mm port was maintained along the epigastrium. Another 8 mm port was placed along the left upper abdominal wall after exchanging the 5 mm port. Please note that the ports were placed at least 10 to 15 cm away from the target anatomy of the gallbladder. The robot was docked along the left lateral abdomen. The patient was repositioned in reverse Trendelenburg position. Using a grasper for arm 3, a grasper for arm 4, including hook cautery for arm 1, the robotic system was docked and primed as described. Instruments were interchanged by the psychology assistant including hook cautery, Bovie cautery and clip appliers. I had sat at the console. The gallbladder was scarred with peritoneal adhesions. Lysis of adhesions was performed to free the gallbladder from the surrounding tissues for over 30 minutes. Next attention was brought to the infundibulum and cystic structures. The infundibulum and cystic duct were dissected free from surrounding tissues. The cystic duct was isolated. FIREFLY was used to identify the cystic artery and cystic structures. A critical view of safety was obtained. Large PLASTIC clips were used throughout the entire case. Using a clip floor framer, 2 clips were placed at the junction of the infundibulum and cystic duct. The cystic duct was divided between clips. Next, the cystic artery was similarly clipped and cauterized. Electro-Bovie cautery was used to remove the gallbladder from the hepatic fossa. Hemostasis was checked and found to be adequate. The robot was undocked. I re-scrubbed into the case. Using a 10 mm Endo Catch bag via the left upper quadrant incision, the specimen was removed from the abdominal cavity. All pneumoperitoneum instruments were evacuated from the abdominal cavity. The incisions were reapproximated using 4-0 Monocryl in an interrupted subcuticular fashion. Fascial defects were less than 8 mm in size. Please note along the trocar sites, local anesthetic was placed as a field block prior to insertion of all instruments. Attention was brought to the right chest wall lesion below the inframammary crease. The lesion was measured with borders of 3 x 1 cm an elliptical transverse fashion. #15 blade was used to incise the lesion and resected. Hemostasis checked with electro-Bovie cautery. 3-0 Vicryl in interrupted the subcutaneous tissue was placed. Running suture of 4-0 Monocryl was placed. Attention was brought to the right nipple where 2 mm projectile lesion was excised using iris scissors. Bleeding was controlled with pressure. All incisions were closed using dilute hydrogen peroxide. Incisions were covered with Exofin tape and liquid glue was applied to the skin. Optifoam dressing was placed along the chest wall and nipple resected sites. At the end of the procedure needle, sponge, and instrument count had been verifi ed correct by the medical imaging technician. The patient was transferred to postanesthesia care unit in stable condition. Plan - Discharge Summary Discharge Rx Participant: Yes New Discharge Prescriptions: New Simethicone [Gas-X] 125 mg PO AC-TID PRN #20 cap PRN Reason: Pain Ibuprofen [Motrin] 600 mg PO Q8HR PRN #30 tab PRN Reason: Pain Acetaminophen Tab [Tylenol Tab] 1,000 mg PO Q6HR PRN #30 tablet PRN Reason: Pain Continue Vitamin B Complex 1 cap PO DAILY Escitalopram [Lexapro] 10 mg PO HS Discharge Medication List Escitalopram [Lexapro] 10 mg PO HS 03/23/21 [History] Vitamin B Complex 1 cap PO DAILY 03/23/21 [History] Acetaminophen Tab [Tylenol Tab] 1,000 mg PO Q6HR PRN #30 tablet 05/26/21 [Rx] Ibuprofen [Motrin] 600 mg PO Q8HR PRN #30 tab 05/26/21 [Rx] Simethicone [Gas-X] 125 mg PO AC-TID PRN #20 cap 05/26/21 [Rx] Patient Instructions/Handouts: *[facility] - Managing Your Pain After Surgery Without Opioids, *[facility] - (Anesthesia) Discharge Instructions Outpatient Surgery, *[facility] - Scopalamine Patch Instructions, Low Fat Diet (ED), Laparoscopic Cholecystectomy (DC) Activity/Diet/Wound Care/Special Instructions: Recommend low-fat diet for the next 2 days. No lifting over 10 pounds in 2 weeks until Jun 09. December shower. No bath tub soaks for two weeks until Jun 09. Diet as tolerated. Use Tylenol, simethicone and ibuprofen or Aleve scheduled for the next 24-48 hours for best pain relief. Use ice along incisions for today to prevent swelling. Discharge Disposition: HOME SELF-CARE
== END 2021-05-26 10:51 | disposition home or self-care (01) ==
LOC: OR 06:11
PROVIDERS: ATTEND Surgery Plastic and Reconstructive Surgery
DX: K80.10 Calculus of gallbladder with chronic cholecystitis without obstruction (principal); F32.9 Major depressive disorder, single episode, unspecified; K66.0 Peritoneal adhesions (postprocedural) (postinfection); L82.1 Other seborrheic keratosis; L98.9 Disorder of the skin and subcutaneous tissue, unspecified; E78.5 Hyperlipidemia, unspecified; K21.9 Gastro-esophageal reflux disease without esophagitis; K58.9 Irritable bowel syndrome, unspecified
CPT/HCPCS: 47563; 19120; 21552; 81025; 88304; 88305; 80053; J2250; J1100; J2710; J0690; J2001; J3010; J2704; J1170; J1644

== ENCOUNTER → 2022-01-17 | Outpatient (CLI) | payer MEDICAID ==
--- NOTE | 2022-01-17 19:49 | CT ---
EXAMINATION TYPE: CT abdomen pelvis w con DATE OF EXAM: 01/17/2022 COMPARISON: None available HISTORY: Diverticulits, diarrhea CT DLP: 517 mGycm Automated exposure control for dose reduction was used. TECHNIQUE: Helical acquisition of images was performed from the lung bases through the pelvis. CONTRAST: Performed with Oral Contrast and with IV Contrast, patient injected with 100 mL of Isovue 300. FINDINGS: LUNG BASES: No significant abnormality is appreciated. LIVER/GB: No significant abnormality is appreciated. PANCREAS: No significant abnormality is seen. SPLEEN: No significant abnormality is seen. ADRENALS: No significant abnormality is seen. KIDNEYS: No acute abnormality is seen. Left renal pelvic ectasia without overt hydronephrosis. No wanda ateral nephrolithiasis or right hydronephrosis. FREE AIR: No free air is visualized. RETROPERITONEAL ADENOPATHY: None visualized REPRODUCTIVE ORGANS: No significant abnormality is seen URINARY BLADDER: No significant abnormality is seen. PELVIC ADENOPATHY: None visualized. OSSEOUS STRUCTURES: No significant abnormality is seen. BOWEL: No significant abnormality is seen. No bowel obstruction. No acute appendicitis or diverticul itis. OTHER: None IMPRESSION: NO ACUTE ABNORMALITY.
== END | disposition home or self-care (01) ==
LOC: RADCTMAIN 15:27
PROVIDERS: ATTEND Surgery Plastic and Reconstructive Surgery
DX: K57.92 Diverticulitis of intestine, part unspecified, without perforation or abscess without bleeding (principal); R19.7 Diarrhea, unspecified
CPT/HCPCS: 74177; Q9967

== ENCOUNTER → 2022-05-10 | Outpatient (CLI) | payer MEDICAID ==
[2022-05-10 13:30] LABS: Partial Thromboplastin Time 24.5 sec (22.0-30.0); Prothrombin Time 10.8 sec (9.0-12.0)
[2022-05-10 17:56] LABS: HCT 35.2 % (37.2-46.3); HGB 11.8 g/dL (12.0-15.0); MCH 32.5 pg (27.0-32.0); MCHC 33.5 g/dL (32.0-37.0); Mean Platelet Volume 10.4 fL (9.5-12.2); NRBC Per 100 WBC 0 /100 WBCS (0.0-0.0); Platelet Count 322 X 10*3/uL (140-440); RBC 3.63 X 10*6/uL (4.10-5.20); RDW 11.7 % (11.5-14.5); WBC 6.27 X 10*3/uL (4.50-10.00)
[2022-05-10 19:17] LABS: LDL Cholesterol,Calculated 158.1 mg/dL (0.0-131.0); VLDL Calculation 14.92 mg/dL (5.00-40.00)
[2022-05-10 20:46] LABS: % Iron Saturation 23.38 (12.00-45.00); BUN/Creat Ratio 13.16 Ratio (12.00-20.00); Total Iron Binding Capacity 414 ug/dL (228-460)
[2022-05-10 20:47] LABS: ALT 19 U/L (8-44); AST 19 U/L (13-35); African American GFR (CKD) 83.9 (60.0-200.0); Albumin 4.6 g/dL (3.8-4.9); Alkaline Phosphatase 46 U/L (41-126); Calcium 9.6 mg/dL (8.7-10.3); Carbon Dioxide 24.6 mmol/L (20.0-27.5); Chloride 102 mmol/L (96-109); Ferritin 28.7 ng/mL (10.0-291.0); Glucose 88 mg/dL (70-110); Iron 97 ug/dL (50-170); Magnesium 2.2 mg/dL (1.5-2.4); Non-African American GFR(CKD) 72.4 (60.0-200.0); Potassium 4.5 mmol/L (3.5-5.5); Sodium 138 mmol/L (135-145); Total Protein 6.6 g/dL (6.2-8.2)
[2022-05-11 16:03] LABS: Zinc, Serum 73 ug/dL (60-130)
== END | disposition home or self-care (01) ==
LOC: LABWHC1 11:08
PROVIDERS: ATTEND Surgery Plastic and Reconstructive Surgery
DX: E66.01 Morbid (severe) obesity due to excess calories (principal); D50.9 Iron deficiency anemia, unspecified; E44.1 Mild protein-calorie malnutrition; E55.9 Vitamin D deficiency, unspecified; K74.1 Hepatic sclerosis; T56.894A Toxic effect of other metals, undetermined, initial encounter; E89.1 Postprocedural hypoinsulinemia
CPT/HCPCS: 36415; 80053; 80061; 82306; 82525; 82607; 82728; 82746; 83036; 83540; 83550; 83735; 83970; 84100; 84134; 84255; 84425; 84443; 84590; 84630; 85027; 85610; 85730

== ENCOUNTER → 2023-05-23 | Outpatient (CLI) | payer MEDICAID ==
[2023-05-23 16:32] LABS: HCT 39.3 % (37.2-46.3); MCH 32.3 pg (27.0-32.0); MCHC 33.1 d/dL (32.0-37.0); MCV 97.5 FL (80.0-97.0); Mean Platelet Volume 10.9 FL (9.5-12.2); NRBC Per 100 WBC 0 X 10*3/uL (0.00-0.01); Platelet Count 279 X 10*3/uL (140-440); RBC 4.03 X 10*6/uL (4.10-5.20); WBC 5.93 X 10*3/uL (4.50-10.00)
[2023-05-23 18:03] LABS: ALT 16 U/L (8-44); AST 18 U/L (13-35); Albumin 4.7 d/dL (3.8-4.9); Albumin/Globulin Ratio 2.76 Ratio (1.60-3.17); Alkaline Phosphatase 46 U/L (41-126); BUN/Creat Ratio 12.33 Ratio (12.00-20.00); Blood Urea Nitrogen 11.1 mg/dL (9.0-27.0); Calcium 9.4 mg/dL (8.7-10.3); Carbon Dioxide 24.1 mmol/L (21.6-31.8); Chloride 105 mmol/L (96-109); Chol/HDL Ratio 2.34 Ratio; Globulin 1.7 d/dL (1.6-3.3); Glucose 102 mg/dL (70-110); LDL Cholesterol,Calculated 130.9 mg/dL (0.0-131.0); Potassium 4.8 mmol/L (3.5-5.5); Rheumatoid Factor, Qnt <15 IU/mL (0-15); Sodium 140 mmol/L (135-145); T4, Free (Free Thyroxine) 1.03 ng/dL (0.80-1.80); Total Bilirubin 0.4 mg/dL (0.3-1.2); Total Protein 6.4 d/dL (6.2-8.2); VLDL Calculation 10.14 mg/dL (5.00-40.00)
[2023-05-23 18:12] LABS: Luteinizing Hormone 12.1 mIU/mL
== END | disposition home or self-care (01) ==
LOC: LABWHC1 10:13
PROVIDERS: ATTEND Obstetrics & Gynecology
DX: Z13.220 Encounter for screening for lipoid disorders (principal); Z13.29 Encounter for screening for other suspected endocrine disorder; N93.8 Other specified abnormal uterine and vaginal bleeding; R53.83 Other fatigue
CPT/HCPCS: 36415; 80053; 80061; 82306; 82670; 83001; 83002; 83036; 84403; 84439; 84443; 84479; 85027; 86038; 86431

== ENCOUNTER → 2023-07-02 | Outpatient (CLI) | payer MEDICAID ==
--- NOTE | 2023-07-02 16:21 | US ---
EXAMINATION TYPE: US pelvis complete transvag DATE OF EXAM: 07/02/2023 COMPARISON: CT 01/17/2022 CLINICAL INDICATION: Female, 52 years old with history of N93.8 DUB; Abnormal bleeding. . TECHNIQUE: Transvaginal (TV) and Transabdominal (TA) . Transabdominal sonographic images of the pel vis were acquired. Transvaginal sonographic images were medically necessary to better assess the fol lowing anatomy: ovaries Date of LMP: EXAM MEASUREMENTS: Uterus: 11.7 x 5.5 x 4.8 cm Endometrial Stripe: 0.56 cm Right Ovary: Not seen Left Ovary: Not seen 1. Uterus: Appears slightly enlarged. Anteverted *Hypoechoic area seen fundal: 1.7 x 1.7 x 1.8 cm. Subcentimeter anechoic areas seen in cervix. 2. Endometrium: 0.43 cm. 3. Right Ovary: Not seen 4. Left Ovary: Not seen 5. Bilateral Adnexa: Appear wnl 6. Posterior cul-de-sac: Some fluid was seen. Trace free fluid in the posterior cul-de-sac which is likely physiologic. Both ovaries are not visual ized due to overlying bowel gas. Endometrium is within normal limits. Fibroid changes of the uterus. Cervical nabothian cysts. IMPRESSION: 1. Fibroid changes uterus. 2. Endometrium within normal limits. 3. Nonvisualization of both ovaries due to overlying bowel gas.
--- NOTE | 2023-07-03 09:10 | MM ---
Reason for Exam: Screening (asymptomatic). Last mammogram was performed 2 year(s) and 9 month(s) ago. Patient History: Menarche at age 12. First Full-Term at age 20. Patient has history of breast feeding. Other cancer. Hormonal Contraceptives for 12 years from age 17 until age 29. Risk Values: Nia 5 year model risk: 1.0%. NCI Lifetime model risk: 7.7%. Prior Study Comparison: 01/10/2018 Bilateral Screening Mammogram, [facility]. 09/29/2020 Bilateral Screening Mammogram, [facility]. 10/13/2020 Right Diagnostic Mammogram, [facility]. Tissue Density: The breast tissue is heterogeneously dense. This may lower the sensitivity of mammography. Findings: Analyzed By CAD. There is no suspicious group of microcalcifications or new suspicious mass in either breast. Benign calcifications demonstrated. Overall Assessment: Benign, BI-RAD 2 Management: Screening Mammogram of both breasts in 1 year. A clinical breast exam by your physician is recommended on an annual basis and results should be correlated with mammographic findings. Note on Nia scores and lifetime risk: 1. A Nia score greater than 3% is considered moderate risk. If this is the case, consider specialist referral to assess eligibility for a risk reducing agent. If overall lifetime risk for the development of breast cancer is 20% or higher, the patient may qualify for future screening with alternating mammogram and breast MRI. Electronically signed and approved by: Jimy Larios D.O.
== END | disposition home or self-care (01) ==
LOC: RADUSWWP 15:32
PROVIDERS: ATTEND Obstetrics & Gynecology
DX: Z12.31 Encounter for screening mammogram for malignant neoplasm of breast (principal); D25.9 Leiomyoma of uterus, unspecified; N93.8 Other specified abnormal uterine and vaginal bleeding
CPT/HCPCS: 76830; 76856; 77063; 77067

== ENCOUNTER → 2024-08-07 | Outpatient (CLI) | payer MEDICAID ==
[2024-08-07 10:43] LABS: HCT 38.2 % (37.2-46.3); HGB 12.9 g/dL (12.0-15.0); MCH 32.7 pg (27.0-32.0); MCHC 33.8 g/dL (32.0-37.0); Mean Platelet Volume 10.1 FL (9.5-12.2); NRBC Per 100 WBC 0 X 10*3/uL (0.00-0.01); Platelet Count 284 X 10*3/uL (140-440); RBC 3.94 X 10*6/uL (4.10-5.20); RDW 12.3 % (11.5-14.5); WBC 5.73 X 10*3/uL (4.50-10.00)
[2024-08-07 11:04] LABS: Chol/HDL Ratio 2.51 Ratio; Follicle Stimulating Hormone 26.3 mIU/mL; LDL Cholesterol,Calculated 147.9 mg/dL (0.0-131.0); Luteinizing Hormone 30.6 mIU/mL; T4, Free (Free Thyroxine) 0.95 ng/dL (0.80-1.80); VLDL Calculation 9.14 mg/dL (5.00-40.00)
== END | disposition home or self-care (01) ==
LOC: LABWHC1 07:04
PROVIDERS: ATTEND Obstetrics & Gynecology Obstetrics
DX: N95.9 Unspecified menopausal and perimenopausal disorder (principal); R53.83 Other fatigue
CPT/HCPCS: 36415; 80061; 83001; 83002; 84144; 84439; 84443; 85027

== ENCOUNTER → 2024-09-29 | Outpatient (CLI) | payer MEDICAID ==
--- NOTE | 2024-09-29 15:54 | MM ---
Reason for Exam: Screening (asymptomatic). Last mammogram was performed 1 year(s) and 3 month(s) ago. Patient History: Menarche at age 12. First Full-Term at age 20. Patient has history of breast feeding. Other cancer. Hormonal Contraceptives for 12 years from age 17 until age 29. Last menstrual period: 07/25/2024 Risk Values: Nia 5 year model risk: 1.0%. NCI Lifetime model risk: 7.5%. Prior Study Comparison: 09/29/2020 Bilateral Screening Mammogram, [facility]. 10/13/2020 Right Diagnostic Mammogram, [facility]. 07/02/2023 Bilateral MG 3D screening mammo w/cad, [facility]. Tissue Density: The breasts are heterogeneously dense, which may obscure small masses. Findings: Analyzed By CAD. Right breast: There is no suspicious group of microcalcifications or new suspicious mass. Left breast: There is no suspicious group of microcalcifications or new suspicious mass. Benign-appearing calcifications left breast. Overall Assessment: Benign, BI-RAD 2 Management: Screening Mammogram of both breasts in [address] [facility] will attempt to contact patient to return for supplemental views and ultrasound if indicated. Patient should continue monthly self-breast exams. A clinical breast exam by your physician is recommended on an annual basis. This exam should not preclude additional follow-up of suspicious palpable abnormalities. Note on Nia scores and lifetime risk: 1. A Nia score greater than 3% is considered moderate risk. If this is the case, consider specialist referral to assess eligibility for a risk reducing agent. 2. If overall lifetime risk for the development of breast cancer is 20% or higher, the patient may qualify for future screening with alternating mammogram and breast MRI. [facility], , 09/29/2024 3:51 PM. Electronically signed and approved by: Raghu Mendiola DO
== END | disposition home or self-care (01) ==
LOC: RADMAMWWP 15:27
PROVIDERS: ATTEND Obstetrics & Gynecology Obstetrics
DX: Z12.31 Encounter for screening mammogram for malignant neoplasm of breast (principal); R92.333 Mammographic heterogeneous density, bilateral breasts
CPT/HCPCS: 77063; 77067